=== PATIENT | female | born 1995 | race Caucasian/White ===

== ENCOUNTER → 2016-12-23 | Outpatient (CLI) | payer OTHER ==
[~2016-12-23] MED LIST: MOTR200T44 PO; TYLE167L PO
[2016-12-23 13:11] LABS: ALT/SGPT 15 U/L (12-78); AST/SGOT 12 U/L (15-37); BILIRUBIN,TOTAL 0.2 MG/DL (0.2-1.0); CREATININE FOR GFR 0.59 MG/DL (0.55-1.02); URIC ACID 4.1 MG/DL (2.6-6.0)
--- NOTE | 2016-12-23 16:39 | REP ---
Clinical: Anatomical evaluation. Comparison: None . Findings: Examination demonstrates a single live intrauterine in cephalic presentation. motion is identified by technologist. Placenta is noted anteriorly and grade zero without evidence for placenta previa or abruption. Amniotic fluid volume is normal. Cervix measures 3.6 cm in length and appears closed. No evidence for nuchal cord. Gestational age by current measurements 19 weeks 0 days with GURMEET 05/19/2017 . FHR equals 150 beats per minute. BPD 4.4 cm 19 weeks 1 day HC 16.0 cm 18 weeks 6 days AC 14.2 cm 19 weeks 4 days FL 3.0 cm 19 weeks 3 days HL 3.0 cm 19 weeks 6 days HC/AC ratio 1.12 Estimated weight 290 grams ( 59th percentile). Anatomical assessment demonstrates normal structures including cranium, choroid plexus, cavum, cerebellum/posterior fossa, lungs, stomach, cord insertion, kidneys/bladder, spine, and extremities. Impression: Single live intrauterine in cephalic presentation. Limited evaluation of the facial features, heart/ventricular outflow tracts, and three-vessel cord may warrant reevaluation and follow-up. Signed by Bladimir Pacheco MD 12/23/2016 12:03 P
== END ==
LOC: M SMT 10:21
PROVIDERS: ATTEND Obstetrics & Gynecology
DX: Z34.82 Encounter for supervision of other normal pregnancy, second trimester (principal); Z36 Encounter for antenatal screening of mother; Z3A.19 19 weeks gestation of pregnancy

== ENCOUNTER → 2017-02-13 | Outpatient (CLI) | payer OTHER ==
--- NOTE | 2017-02-14 04:43 | REP ---
Clinical: Anatomical evaluation. Comparison: 12/23/2016 . Findings: Examination demonstrates a single live intrauterine currently in breech presentation. motion is identified by technologist. Placenta is noted anteriorly and grade zero without evidence for placenta previa or abruption. Amniotic fluid volume is normal. Cervix measures 4.5 cm in length and appears closed. Nuchal cord cannot be excluded. 1.8 cm anterior intramural midline uterine hypodensity likely represent small fibroid. Presumed complex cystic changes to the left maternal ovary measuring 3.1 x 3.4 x 6.0 cm. Gestational age by LMP 26 weeks 3 days with GURMEET 05/19/2017 . Gestational age by current measurements 26 weeks 2 days with GURMEET 05/20/2017 . FHR equals 145 beats per minute. Estimated weight 923 grams ( 41st percentile). Anatomical assessment demonstrates normal structures including cranium, choroid plexus, cavum, cerebellum/posterior fossa, facial features, lungs, four-chamber heart/ventricular outflow tracts, diaphragm, stomach, cord insertion/three-vessel cord, kidneys/bladder, spine, and extremities. Impression: 1. Single live intrauterine currently in breech presentation demonstrating appropriate interval growth. 2. Anatomical assessment is complete and normal. 3. Suspected small maternal fibroid as well as possible complex enlarged left ovary may warrant follow-up evaluation. Signed by Bladimir Pacheco MD 02/14/2017 04:35 A
== END ==
LOC: M RAD 13:16
PROVIDERS: ATTEND Advanced Practice Midwife
DX: O32.1XX0 Maternal care for breech presentation, not applicable or unspecified (principal); Z36 Encounter for antenatal screening of mother; Z3A.26 26 weeks gestation of pregnancy

== ENCOUNTER → 2017-04-01 | Outpatient (CLI) | payer OTHER ==
[2017-04-01 15:44] LABS: BASO % 0.2 % (0.0-1.0); EOS # 0.1 K/mm3 (0.0-0.50); EOS % 1.4 % (0.0-3.0); LARGE UNSTAINED CELL # 0.1 K/mm3 (0.0-0.4); LARGE UNSTAINED CELL % 1.9 % (0.0-4.0); LYMPH % 28.6 % (24.0-44.0); MEAN CORPUSCULAR HEMOGLOBIN 28.6 pg (27.0-33.0); MEAN CORPUSCULAR HGB CONC 33.6 g/dl (32.0-36.5); MEAN CORPUSCULAR VOLUME 85.1 fl (80.0-96.0); MONO # 0.4 K/mm3 (0.0-0.8); MONO % 5.7 % (0.0-5.0); NEUTROPHILS # 4.1 K/mm3 (1.8-7.7); NEUTROPHILS % 62.3 % (36.0-66.0); PLATELET COUNT, AUTOMATED 198 k/mm3 (150-450); RED CELL DISTRIBUTION WIDTH 13.6 % (11.5-14.5); WHITE BLOOD COUNT 6.6 K/mm3 (4.0-10.0)
[2017-04-02 10:57] LABS: HBsAg Prenatal NEGATIVE (NEGATIVE)
== END ==
LOC: M LAB 14:06
PROVIDERS: ATTEND Advanced Practice Midwife
DX: Z34.83 Encounter for supervision of other normal pregnancy, third trimester (principal); Z36 Encounter for antenatal screening of mother; Z3A.00 Weeks of gestation of pregnancy not specified

== ENCOUNTER → 2017-04-22 | Outpatient (REF) | payer OTHER ==
[~2017-04-22] MED LIST changes: +ACET50TA PO; +IBUP-1114 PO; +PRENTAB9 PO
== END ==
LOC: M LAB REF 16:59
PROVIDERS: ATTEND Advanced Practice Midwife
DX: Z34.83 Encounter for supervision of other normal pregnancy, third trimester (principal); Z36 Encounter for antenatal screening of mother; Z3A.00 Weeks of gestation of pregnancy not specified

== ENCOUNTER 2017-05-07 15:55 | Inpatient (IN) | payer OTHER ==
[~2017-05-07] VITALS: Ht 172.7 cm; Wt 105.0 kg
[~2017-05-07 15:55] MED LIST changes: -ACET50TA PO; -IBUP-1114 PO; -PRENTAB9 PO
[2017-05-07 16:18] VITALS: BP 133/68
[2017-05-07] MEDS ORDERED: miSOPROStol 50 MCG 1/2 TAB (S0191) PO ONE (16:45)
--- NOTE | 2017-05-07 17:07 | HPE ---
DATE OF ADMISSION: 05/07/2017 CHIEF COMPLAINT: Induction of labor. HISTORY OF PRESENT ILLNESS: Trang Mancini is a 22-year-old G4, P2-0-1-2, at 38 weeks, 6 days gestation by last menstrual period of 08/08/2016, confirmed by ultrasound. Her estimated date of confinement is 05/15/2017. She presents from the office for induction secondary to gestational hypertension and proteinuria. She denies contractions. She denies rupture of membranes. She is feeling baby move. She denies bleeding and discharge. Her last intercourse was yesterday. LABORATORIES: She is A positive, GBS negative, rubella immune. HIV negative, gonorrhea and chlamydia negative, hepatitis B antigen negative, hepatitis C nonreactive, VDRL nonreactive. Diabetes screen was 106. Urine showed no growth. Her blood pressures in the office have been ranging from 102-152 over 69-94. Obstetrical ultrasound from 01/10/2016 showed a posterior placenta without previa or abruption. Anatomical assessment was normal and complete. PAST OBSTETRICAL HISTORY: 1. In 2013 she delivered a female at 42 weeks and 0 days gestation by spontaneous vaginal delivery, weighing 9 pounds 2 ounces. 2. In 2014 she had an . 3. In 2015 she delivered a female at 40 weeks and 5 days via normal spontaneous vaginal delivery, weighing 8 pounds 12 ounces. MEDICAL HISTORY: None. MEDICATIONS: None. PAST SURGICAL HISTORY: None. ALLERGIES: None. SOCIAL HISTORY: She is single. Smokes three cigarettes a day. Denies alcohol or drug use. PHYSICAL EXAMINATION: VITAL SIGNS: Temperature is 97.5, pulse is 82, respiratory rate is 18, blood pressure is 133/68. ABDOMEN: Gravid. Upon vaginal exam she was closed, 50% effaced, -3 station. monitor: heart rate is in the 130s with accelerations, no decelerations. Moderate variability. Category 1 tracing. ASSESSMENT: 1. Intrauterine at 38 weeks, 6 days gestation, presenting for induction secondary to gestational hypertension and proteinuria. 2. Reassuring status. PLAN: 1. Admit to labor and delivery. 2. Start 50mcg Cytotec. My preceptor for this patient encounter was Dr. Cheyenne Willson. The preceptor was physically present in the building during the encounter and was fully available as needed. All aspects of the patient interview, examination, medical decision making process, and medical care plan development were reviewed and approved by the preceptor. The preceptor is aware and concurs with the plan as stated in the body of this note and will attest to such by his/her co-signature. RIGOBERTO
[2017-05-07 17:22] LABS: MEAN CORPUSCULAR HEMOGLOBIN 27.3 pg (27.0-33.0); MEAN CORPUSCULAR HGB CONC 33.3 g/dl (32.0-36.5); RED CELL DISTRIBUTION WIDTH 13.8 % (11.5-14.5); WHITE BLOOD COUNT 6.4 K/mm3 (4.0-10.0)
[2017-05-07] MEDS: miSOPROStol 50 MCG 1/2 TAB (S0191) PO SCH ×2 (17:25→22:23)
[2017-05-07 17:51] LABS: ALT/SGPT 14 U/L (12-78); AST/SGOT 13 U/L (15-37); BILIRUBIN,TOTAL 0.2 MG/DL (0.2-1.0); CREATININE FOR GFR 0.65 MG/DL (0.55-1.02); GLOMERULAR FILTRATION RATE > 60.0 (>60); URIC ACID 5.1 MG/DL (2.6-6.0)
[2017-05-07 20:07] VITALS: BP 136/84
[2017-05-07 22:27] VITALS: BP 131/74
[2017-05-08] VITALS (27 sets, daily range): BP systolic 105–156; BP diastolic 55–94
[2017-05-08] MEDS: miSOPROStol 50 MCG 1/2 TAB (S0191) PO SCH ×2 (02:30→09:15)
[2017-05-08] MEDS ORDERED: BICITRA 30ML SOLN UDC PO SCH (06:00)
[2017-05-08] MEDS ORDERED: OXYTOCIN DRIP 30 UNITS in APPROPRIATE DILUENT 1 EA IV SCH (13:15)
[2017-05-08] MEDS ORDERED: LR 1,000 ML IV SCH (14:40)
[2017-05-08 16:21] LABS: MEAN CORPUSCULAR HEMOGLOBIN 27.6 pg (27.0-33.0); MEAN CORPUSCULAR HGB CONC 33.7 g/dl (32.0-36.5); WHITE BLOOD COUNT 6.9 K/mm3 (4.0-10.0)
[2017-05-08] MEDS ORDERED: FENTANYL 2MCG/ML ROPIVACAINE 0.2% IN 0.9% NACL 200ML IVBAG As Ordered ONE (16:30)
--- NOTE | 2017-05-08 16:33 | IPN ---
DATE: 05/08/2017 SUBJECTIVE: The patient is feeling more pressure with contractions and would like and epidural. OBJECTIVE: Blood pressure is 105/55, pulse is 74. No acute distress. ABDOMEN: Nontender, gravid. Sterile vaginal examination: /-2. heart rate: 140, moderate variability, accelerations, no decelerations. [place]: Shows irritability. ASSESSMENT AND PLAN: 22-year-old, 4, para 2 in labor. 1. Epidural. 2. Artificial rupture of membranes. 3. We will monitor progress. My preceptor for this patient encounter was Dr. Shay. The preceptor was physically present in the building during the encounter and was fully available. As needed, all aspects of the patient interview, examination, medical decision making process, and medical care plan development were reviewed and approved by the preceptor. The preceptor is aware and concurs with the plan as stated in the body of this note and will attest to such by his/her cosignature. RIGOBERTO
[2017-05-08] MEDS ORDERED: ePHEDrine SULFATE 25 MG/5 ML(5MG/ML) SYRINGE IV PRN (17:30)
[2017-05-08] MEDS ORDERED: EPIDURAL COMMENT XX SCH (17:30)
[2017-05-08] MEDS ORDERED: REFRIGERATOR IV KEYS XX PRN (17:30)
[2017-05-08] MEDS ORDERED: LACTATED RINGER'S 1000 ML IV PRN (17:30)
[2017-05-08] MEDS ORDERED: NALOXONE INJ 0.4 MG/1 ML VIAL (J2310) IV PRN (17:30)
[2017-05-08] MEDS ORDERED: ONDANSETRON 4MG/2ML VIAL (J2405) IV PRN ×2 (17:30→20:00)
[2017-05-08] MEDS ORDERED: FENTANYL/ROPIVACAINE/NACL BAG 200 ML EPIDURAL SCH (17:30)
[2017-05-08] MEDS ORDERED: EPIDURAL/PCA KEYS XX PRN (17:30)
[2017-05-08] MEDS ORDERED: diphenhydrAMINE INJ 50MG/ML VIAL (J1200) IV PRN (17:30)
--- NOTE | 2017-05-08 19:27 | IPN ---
DATE: 05/08/2017 SUBJECTIVE: The patient had just gotten an epidural, she is more comfortable now. OBJECTIVE: Blood pressure is 105/55, pulse is 74. The patient is in no acute distress. Abdomen: Nontender, gravid. SVE: 4/7/-2. FHR: 140, moderate variability. Accelerations, no decelerations. Artifical rupture of membranes was performed by Dr. Shay at 1725. Aminotic fluid was clear with moderate amount. ASSESSMENT AND PLAN: 22-year-old 4, para 2 in labor. 1. AROM performed at 1725. 2. Will monitor progress, expectant management. My preceptor for this patient encounter was Dr. Viktor Shay. The preceptor was physically present in the building during the encounter and was fully available. As needed, all aspects of the patient interview, examination, medical decision making process, and medical care plan development were reviewed and approved by the preceptor. The preceptor is aware and concurs with the plan as stated in the body of this note and will attest to such by his/her cosignature. RIGOBERTO
[2017-05-08] MEDS ORDERED: DOCUSATE SODIUM 100 MG CAP PO PRN (20:00)
[2017-05-08] MEDS ORDERED: METHYLERGONOVINE MALEATE 0.2 MG TAB PO PRN (20:00)
[2017-05-08] MEDS ORDERED: PROMETHAZINE 25 MG TAB PO PRN (20:00)
[2017-05-08] MEDS ORDERED: MOM 30ML SUSPENSION UDC PO PRN (20:00)
[2017-05-08] MEDS ORDERED: DIBUCAINE 1% OINTMENT 30GM TOP PRN (20:00)
[2017-05-08] MEDS ORDERED: OXYTOCIN DRIP 30 UNITS in APPROPRIATE DILUENT 1 EA IV ONE (20:00)
[2017-05-08] MEDS ORDERED: RHOGAM 300 MCG (1500 IU) INJ (J2790) IM SCH (20:00)
[2017-05-08] MEDS ORDERED: MEASLES,MUMPS,RUBELLA VACCINE INJ (MMR-II) (90707) SC SCH (20:00)
--- NOTE | 2017-05-08 20:17 | IPN ---
DATE: 05/08/2017 SUBJECTIVE: Patient states that she is feeling more pressure with her contractions. OBJECTIVE: Blood pressure is 143/76. No acute distress. ABDOMEN: Not tender, gravid. SVE: 5/90/-1. FHR: 140, moderate variability. Accelerations. No decelerations. ASSESSMENT AND PLAN: A 22-year-old G4, P1, in active labor. Anticipate spontaneous vaginal delivery. My preceptor for this patient encounter was Dr. Viktor Shay. The preceptor was physically present in the building during the encounter and was fully available as needed. All aspects of the patient interview, examination, medical decision making process, and medical care plan development were reviewed and approved by the preceptor. The preceptor is aware and concurs with the plan as stated in the body of this note and will attest to such by his/her co-signature. RIGOBERTO
[2017-05-09] MEDS: ACETAMINOPHEN 500 MG TAB PO PRN ×2 (05:07→19:47)
[2017-05-09 06:00] VITALS: BP 141/94
[2017-05-09] MEDS: PRENATAL VITAMINS CHEWABLE TABLET PO SCH (07:33)
[2017-05-09] MEDS: IBUPROFEN 800 MG TAB PO PRN ×2 (07:33→15:37)
[2017-05-09 18:00] VITALS: BP 151/85
[2017-05-10 06:04] VITALS: BP 140/81
[2017-05-10] MEDS: PRENATAL VITAMINS CHEWABLE TABLET PO SCH (09:19)
--- NOTE | 2017-05-10 09:37 | DN ---
DATE OF DELIVERY: 05/08/2017 PREDELIVERY DIAGNOSES: 39 weeks, gestational hypertension. POSTDELIVERY DIAGNOSIS: Delivered. PROCEDURE: Spontaneous vaginal delivery. BOLOGNA LACER: Viktor Shay MD ANESTHESIA: Epidural. ESTIMATED BLOOD LOSS: 300 mL. FINDINGS: 8-pound 13-ounce female infant, scores 8 and 9. DELIVERY SUMMARY: After a short second stage, the patient spontaneously delivered an 8-pound 13-ounce female infant, 4000 grams, scores 8 and 9, under epidural anesthesia. There was no nuchal cord. The shoulders delivered with ease. The infant cried spontaneously and was handed to the mother. The cord was doubly clamped and cut. The placenta delivered spontaneously and appeared to be intact. The patient received intravenous (IV) Pitocin immediately after delivery of the placenta. There were no vaginal lacerations present. Sponge counts were correct.
[2017-05-10] MEDS ORDERED: ACET50TA PO (12:01)
[2017-05-10] MEDS ORDERED: IBUP-1114 PO (12:01)
[2017-05-10] MEDS ORDERED: PRENTAB9 PO (12:01)
--- NOTE | 2017-05-11 21:48 | DSES ---
DATE OF ADMISSION: 05/07/2017 DATE OF DISCHARGE: 05/10/2017 Trang is a 22-year-old female, 4, para 2-0-1-2 who is admitted at 38-6/7 weeks gestation after having gestational hypertension for an induction with Cytotec. Then became fully dilated and delivered a normal spontaneous vaginal delivery. Was then transferred to maternity for care. she did well. Her blood pressures remained mildly elevated in 140s over 90s. On day of discharge her blood pressure was 140/81. Patient without any complaint. Patient was then discharged home to followup with a [facility] in approximately 1 week for blood pressure check and 6 weeks' visit. Discharge instruction given. She is to call if there is any severe bleeding, pain, temperature, headache, or blurred vision. RIGOBERTO
== END 2017-05-10 12:45 | disposition home or self-care (01) | DRG 560 ==
LOC: M LDI 15:55 → M OBS 05-08 21:39
PROVIDERS: ADMIT Advanced Practice Midwife; ATTEND Specialist
PROC: 3E0P7GC Introduction of Other Therapeutic Substance into Female Reproductive, Via Natural or Artificial Opening (ICD-10-PCS; 2017-05-07)
PROC: 10E0XZZ Delivery of Products of Conception, External Approach (ICD-10-PCS; principal; 2017-05-08)
PROC: 10907ZC Drainage of Amniotic Fluid, Therapeutic from Products of Conception, Via Natural or Artificial Opening (ICD-10-PCS; 2017-05-08)
DX: O14.94 Unspecified pre-eclampsia, complicating childbirth (principal); E66.9 Obesity, unspecified; F17.210 Nicotine dependence, cigarettes, uncomplicated; Z3A.38 38 weeks gestation of pregnancy; O99.334 Smoking (tobacco) complicating childbirth; O99.214 Obesity complicating childbirth; Z37.0 Single live birth; Z68.29 Body mass index [BMI] 29.0-29.9, adult

== ENCOUNTER → 2017-12-12 | Outpatient (CLI) | payer OTHER | LOC: M RAD 18:12 | DX: Z32.01 Encounter for pregnancy test, result positive (principal) | CPT/HCPCS: 76801 ==

== ENCOUNTER → 2019-05-17 | Outpatient (CLI) | payer OTHER ==
[~2019-05-17] MED LIST changes: +IBUP-1114 PO; +MAPA500T2 PO; +PRENTAB9 PO
[2019-05-17 10:19] LABS: BASO % 0.3 % (0.0-1.0); EOS # 0.1 10^3/uL (0.0-0.50); EOS % 1.6 % (0.0-3.0); HEMATOCRIT 38.2 % (36.0-47.0); LYMPH # 2.2 10^3/uL (1.5-6.5); LYMPH % 31.9 % (24.0-44.0); MEAN CORPUSCULAR HEMOGLOBIN 29.3 pg (27.0-33.0); MEAN CORPUSCULAR VOLUME 86.2 fl (80.0-96.0); MONO # 0.4 10^3/uL (0.0-0.8); MONO % 5.6 % (0.0-5.0); NEUTROPHILS # 4.1 10^3/uL (1.8-7.7); NEUTROPHILS % 60.3 % (36.0-66.0); PLATELET COUNT, AUTOMATED 199 10^3/uL (150-450); RED BLOOD COUNT 4.43 10^6/uL (4.00-5.40); WHITE BLOOD COUNT 6.8 10^3/uL (4.0-10.0)
[2019-05-17 10:44] LABS: ALT/SGPT 19 U/L (12-78); BILIRUBIN,TOTAL 0.3 MG/DL (0.2-1.0); CREATININE FOR GFR 0.64 MG/DL (0.55-1.30); GLOMERULAR FILTRATION RATE > 60.0 (>60); LDH LACTATE DEHYDROGENASE 134 U/L (84-246); URIC ACID 3.5 MG/DL (2.6-6.0)
[2019-05-17 11:10] LABS: RUBELLA IgG QUALITATIVE IMMUNE (IMMUNE)
[2019-05-17 11:39] LABS: HEPATITIS C VIRUS ABY INDEX 0.1 INDEX (<0.8)
[2019-05-17 11:40] LABS: CHLAMYDIA DNA AMPLIFICATION NEGATIVE (NEGATIVE)
[2019-05-17 20:33] LABS: TOTAL PROTEIN,RANDOM URINE 10.8 MG/DL (0.0-12.0)
[2019-05-18 06:44] LABS: CREATININE,RANDOM URINE 40.3 MG/DL
[2019-05-18 06:45] LABS: GC DNA AMPLIFICATION NEGATIVE (NEGATIVE)
[2019-05-18 06:46] LABS: HIV 1&2 SCREEN CENTAUR NEGATIVE (NEGATIVE)
== END ==
LOC: M LAB 09:20
PROVIDERS: ATTEND Advanced Practice Midwife
DX: Z34.81 Encounter for supervision of other normal pregnancy, first trimester (principal); Z3A.09 9 weeks gestation of pregnancy

== ENCOUNTER 2019-06-20 11:53 | Emergency (ER) | payer OTHER ==
[~2019-06-20] VITALS: Ht 172.7 cm; Wt 95.6 kg
[2019-06-20 12:34] VITALS: BP 119/73
[2019-06-20] MEDS ORDERED: CLIN150C14 PO (13:20)
== END 2019-06-20 13:41 | disposition home or self-care (01) ==
LOC: M ED 11:53
DX: K02.9 Dental caries, unspecified (principal); Z3A.18 18 weeks gestation of pregnancy; F17.200 Nicotine dependence, unspecified, uncomplicated

== ENCOUNTER → 2019-06-28 | Outpatient (CLI) | payer OTHER ==
[~2019-06-28] MED LIST changes: +CLIN150C14 PO
--- NOTE | 2019-06-29 04:12 | REP ---
Clinical: Anatomical evaluation. Comparison: None . Findings: Examination demonstrates a single live intrauterine in breech presentation. motion is identified by technologist. Placenta is noted posterior and grade zero without evidence for placenta previa or abruption. Amniotic fluid volume is normal. Cervix measures 4.2 cm in length and appears closed. No evidence for nuchal cord. Gestational age by LMP 19 weeks 1 day with GURMEET 11/21/2019 . Gestational age by current measurements 18 weeks 4 days with GURMEET 11/25/2019 . FHR equals 139 beats per minute. BPD 4.1 cm 18 weeks 3 days HC 15.4 cm 18 weeks 3 days AC 13.4 cm 18 weeks 6 days FL 2.9 cm 19 weeks 0 days HL 2.8 cm 19 weeks 1 day HC/AC ratio 1.15 Estimated weight 261 grams ( 38th percentile). Anatomical assessment demonstrates normal structures including cranium, choroid plexus, cavum, cerebellum/posterior fossa, facial features, lungs, diaphragm, stomach, cord insertion/three-vessel cord, kidneys/bladder, spine, and extremities. Impression: Single live intrauterine in breech presentation demonstrating appropriate interval growth. Limited evaluation of the heart and cardiac ventricular outflow tracts noted. Remainder of the anatomical assessment is complete and normal. Electronically Signed by Bladimir Pacheco MD 06/29/2019 04:04 A
== END ==
LOC: M RAD 09:48
PROVIDERS: ATTEND Advanced Practice Midwife
DX: Z34.82 Encounter for supervision of other normal pregnancy, second trimester (principal); Z3A.18 18 weeks gestation of pregnancy

== ENCOUNTER → 2019-07-16 | Outpatient (CLI) | payer OTHER ==
--- NOTE | 2019-07-16 11:10 | REP ---
OB ULTRASOUND: Real-time sonographic evaluation of the gravid uterus is performed. There is a single living intrauterine gestation. Estimated gestational age 21 weeks 5 days, EDC 11/21/2019. Today's measurements indicate appropriate growth. BPD 48 mm = 20 weeks 3 days, 17th percentile HC 182 mm = 20 weeks 4 days, 17th percentile AC 159 mm = 21 weeks 0 days, 36th percentile Femur length 35 mm = 21 weeks 1 day, 34th percentile HC/AC ratio 1.14 within normal range. Estimated weight 392 grams, 24th percentile. Cervix is closed and measures 4.8 cm in length. heart rate 144 beats per minute. SEEN/GROSSLY UNREMARKABLE Lateral ventricles Yes Posterior fossa Yes Upper lip No Four-chamber heart No LVOT Yes RVOT No Stomach Yes Cord insertion Yes Three vessel cord Yes Kidneys Yes Bladder Yes Spine Yes position: Footling breech. Placenta: Posterior and grade 1 with no previa or abruption. Amniotic fluid: Within normal limits. Electronically Signed by Shravan Solorio MD 07/20/2019 08:46 A
== END ==
LOC: M RAD 08:54
PROVIDERS: ATTEND Obstetrics & Gynecology
DX: Z34.82 Encounter for supervision of other normal pregnancy, second trimester (principal)

== ENCOUNTER → 2019-08-12 | Outpatient (CLI) | payer OTHER ==
--- NOTE | 2019-08-12 20:29 | REP ---
Clinical: Anatomical evaluation. Comparison: 07/16/2019 . Findings: Examination demonstrates a single live intrauterine in the cephalic presentation. motion is identified by technologist. Placenta is noted the posterior and grade zero without evidence for placenta previa or abruption. Amniotic fluid volume is normal. Cervix measures 3.6 cm in length and appears closed. Nuchal cord cannot be excluded. Gestational age by LMP 25 weeks 4 days with GURMEET 11/21/2019 . Gestational age by current measurements 24 weeks 5 days with GURMEET 11/27/2019 . FHR equals 140 beats per minute. Estimated weight 756 grams ( 27 percentile). Anatomical assessment demonstrates normal structures including cranium, choroid plexus, cavum, facial features, lungs, four-chamber heart/ventricular outflow tracts, diaphragm, stomach, three-vessel cord, kidneys/bladder, spine, and lower extremities. Impression: 1. Single live intrauterine in cephalic presentation demonstrating appropriate interval growth. 2. Nuchal cord cannot be excluded. 3. No gross anatomical abnormalities appreciated. Electronically Signed by Bladimir Pacheco MD 08/12/2019 08:20 P
== END ==
LOC: M RAD 10:02
PROVIDERS: ATTEND Advanced Practice Midwife
DX: Z36.9 Encounter for antenatal screening, unspecified (principal); Z3A.24 24 weeks gestation of pregnancy

== ENCOUNTER → 2019-10-01 | Outpatient (CLI) | payer OTHER ==
[2019-10-01 11:19] LABS: HEMATOCRIT 32.4 % (36.0-47.0); HEMOGLOBIN 10.7 g/dl (12.0-15.5); MEAN CORPUSCULAR HEMOGLOBIN 28.5 pg (27.0-33.0); MEAN CORPUSCULAR VOLUME 86.4 fl (80.0-96.0); PLATELET COUNT, AUTOMATED 224 10^3/uL (150-450); RED BLOOD COUNT 3.75 10^6/uL (4.00-5.40); WHITE BLOOD COUNT 9.2 10^3/uL (4.0-10.0)
== END ==
LOC: M LAB 09:24
PROVIDERS: ATTEND Obstetrics & Gynecology
DX: Z34.90 Encounter for supervision of normal pregnancy, unspecified, unspecified trimester (principal); Z3A.00 Weeks of gestation of pregnancy not specified

== ENCOUNTER → 2019-10-04 | Outpatient (CLI) | payer OTHER ==
[2019-10-04 13:10] LABS: HEMATOCRIT 34.9 % (36.0-47.0); HEMOGLOBIN 11.2 g/dl (12.0-15.5); MEAN CORPUSCULAR HEMOGLOBIN 28.5 pg (27.0-33.0); MEAN CORPUSCULAR HGB CONC 32.1 g/dl (32.0-36.5); MEAN CORPUSCULAR VOLUME 88.8 fl (80.0-96.0); PLATELET COUNT, AUTOMATED 225 10^3/uL (150-450); RED BLOOD COUNT 3.93 10^6/uL (4.00-5.40); WHITE BLOOD COUNT 9.4 10^3/uL (4.0-10.0)
[2019-10-04 14:07] LABS: ALT/SGPT 11 U/L (12-78); BILIRUBIN,TOTAL 0.1 MG/DL (0.2-1.0); CREATININE FOR GFR 0.58 MG/DL (0.55-1.30); GLOMERULAR FILTRATION RATE > 60.0 (>60); LDH LACTATE DEHYDROGENASE 121 U/L (84-246); URIC ACID 3.1 MG/DL (2.6-6.0)
[2019-10-04 14:32] LABS: CREATININE,RANDOM URINE 56.4 MG/DL; TOTAL PROTEIN,RANDOM URINE 17.8 MG/DL (0.0-12.0)
== END ==
LOC: M PLALAB 10:11
PROVIDERS: ATTEND Obstetrics & Gynecology
DX: O16.3 Unspecified maternal hypertension, third trimester (principal); Z3A.00 Weeks of gestation of pregnancy not specified

== ENCOUNTER → 2019-10-07 | Outpatient (CLI) | payer OTHER | LOC: M LAB 06:52 | PROVIDERS: ATTEND Obstetrics & Gynecology | DX: O99.810 Abnormal glucose complicating pregnancy (principal) ==

== ENCOUNTER 2019-10-11 01:11 | Emergency (ER) | payer OTHER ==
[2019-10-11] MEDS ORDERED: AUGM500T34 PO (04:08)
== END 2019-10-11 01:48 | disposition admitted as inpatient to this hospital (09) ==
LOC: M ED 01:11
DX: K92.9 Disease of digestive system, unspecified (principal)

== ENCOUNTER 2019-10-11 01:32 | Outpatient (CLI) | payer OTHER ==
[~2019-10-11] VITALS: Ht 172.7 cm; Wt 104.4 kg
[2019-10-11 01:49] VITALS: BP 121/68
[2019-10-11] MEDS ORDERED: AUGM500T34 PO (04:08)
== END 2019-10-11 02:48 | disposition home or self-care (01) ==
LOC: M LDO 01:32
PROVIDERS: ATTEND Obstetrics & Gynecology
DX: O26.93 Pregnancy related conditions, unspecified, third trimester (principal); R10.9 Unspecified abdominal pain; Z3A.33 33 weeks gestation of pregnancy

== ENCOUNTER 2019-10-11 02:56 | Emergency (ER) | payer OTHER ==
[~2019-10-11] VITALS: Ht 172.7 cm; Wt 101.8 kg
[2019-10-11] MEDS ORDERED: AUGMENTIN 875 MG TAB PO ONE (04:00)
[2019-10-11] MEDS ORDERED: AUGM500T34 PO (04:08)
[2019-10-11 04:19] LABS: INFLUENZA A AMPLIFICATION NEGATIVE (NEGATIVE); INFLUENZA B AMPLIFICATION NEGATIVE (NEGATIVE)
[2019-10-11 04:29] VITALS: BP 135/72
== END 2019-10-11 04:16 | disposition home or self-care (01) ==
LOC: M ED 02:56
DX: O99.89 Other specified diseases and conditions complicating pregnancy, childbirth and the puerperium (principal); Z3A.34 34 weeks gestation of pregnancy; H66.90 Otitis media, unspecified, unspecified ear; J06.9 Acute upper respiratory infection, unspecified

== ENCOUNTER → 2019-10-19 | Outpatient (REF) | payer OTHER ==
[~2019-10-19] MED LIST changes: +AUGM500T34 PO
== END ==
LOC: M SFHCWAGY 16:51
PROVIDERS: ATTEND Specialist
DX: Z34.83 Encounter for supervision of other normal pregnancy, third trimester (principal)

== ENCOUNTER 2019-11-02 06:58 | Inpatient (IN) | payer OTHER ==
[2019-11-02] VITALS (15 sets, daily range): BP systolic 118–147; BP diastolic 60–83
[~2019-11-02] VITALS: Ht 172.7 cm; Wt 106.0 kg
[2019-11-02] MEDS ORDERED: LR 1,000 ML IV SCH (07:32)
[2019-11-02] MEDS ORDERED: LACTATED RINGER'S 1000 ML IV STA (07:32)
[2019-11-02 08:57] LABS: HEMATOCRIT 30.8 % (36.0-47.0); HEMOGLOBIN 9.8 g/dl (12.0-15.5); MEAN CORPUSCULAR HEMOGLOBIN 27.8 pg (27.0-33.0); MEAN CORPUSCULAR HGB CONC 31.8 g/dl (32.0-36.5); MEAN CORPUSCULAR VOLUME 87.3 fl (80.0-96.0); PLATELET COUNT, AUTOMATED 154 10^3/uL (150-450); RED BLOOD COUNT 3.53 10^6/uL (4.00-5.40); WHITE BLOOD COUNT 9.2 10^3/uL (4.0-10.0)
[2019-11-02 09:21] LABS: ALT/SGPT 12 U/L (12-78); BILIRUBIN,TOTAL 0.2 MG/DL (0.2-1.0); GLOMERULAR FILTRATION RATE > 60.0 (>60); LDH LACTATE DEHYDROGENASE 114 U/L (84-246); URIC ACID 3.4 MG/DL (2.6-6.0)
[2019-11-02] MEDS: miSOPROStol 50 MCG 1/2 TAB (S0191) SL SCH ×3 (09:53→18:31)
[2019-11-02] MEDS ORDERED: OXYTOCIN 30 UNITS IN 0.9% NaCl 500ML IV BAG (J2590) As Ordered ONE (22:23)
[2019-11-02] MEDS ORDERED: OXYTOCIN DRIP 30 UNITS in IV 1 EA IV SCH (23:00)
[2019-11-03] VITALS (31 sets, daily range): BP systolic 113–169; BP diastolic 58–134
[2019-11-03] MEDS ORDERED: FENTANYL 2MCG/ML ROPIVACAINE 0.2% IN 0.9% NACL 100ML IVBAG As Ordered ONE (01:01)
[2019-11-03] MEDS ORDERED: EPIDURAL COMMENT XX SCH (01:10)
[2019-11-03] MEDS ORDERED: ONDANSETRON 4MG/2ML VIAL (J2405) IV PRN ×2 (01:10→05:15)
[2019-11-03] MEDS ORDERED: EPIDURAL/PCA KEYS XX PRN (01:10)
[2019-11-03] MEDS ORDERED: FENTANYL/ROPIVACAINE/NACL BAG 100 ML EPIDURAL SCH (01:10)
[2019-11-03] MEDS ORDERED: LACTATED RINGER'S 1000 ML IV PRN (01:10)
[2019-11-03] MEDS ORDERED: REFRIGERATOR IV KEYS XX PRN (01:10)
[2019-11-03] MEDS ORDERED: ePHEDrine SULFATE 25 MG/5 ML(5MG/ML) SYRINGE IV PRN (01:10)
[2019-11-03] MEDS ORDERED: NALOXONE INJ 0.4 MG/1 ML VIAL (J2310) IV PRN (01:10)
[2019-11-03] MEDS ORDERED: diphenhydrAMINE INJ 50MG/ML VIAL (J1200) IV PRN (01:10)
[2019-11-03] MEDS ORDERED: IBUPROFEN 600 MG TAB PO PRN (05:15)
[2019-11-03] MEDS ORDERED: IBUPROFEN 800 MG TAB PO PRN (05:15)
[2019-11-03] MEDS ORDERED: ACETAMINOPHEN TAB 650MG DOSE (2X325MG) PO PRN (05:15)
[2019-11-03] MEDS ORDERED: DIBUCAINE 1% OINTMENT 30GM TOP PRN (05:15)
[2019-11-03] MEDS ORDERED: PROMETHAZINE 25 MG TAB PO PRN (05:15)
[2019-11-03] MEDS ORDERED: ACETAMINOPHEN 500 MG TAB PO PRN (05:15)
[2019-11-03] MEDS ORDERED: DOCUSATE SODIUM 100 MG CAP PO PRN (05:15)
[2019-11-03] MEDS ORDERED: LR 1,000 ML IV SCH (06:00)
[2019-11-03] MEDS ORDERED: MEASLES,MUMPS,RUBELLA VACCINE INJ (MMR-II) (90707) SC SCH (06:00)
[2019-11-03] MEDS ORDERED: RHOGAM 300 MCG (1500 IU) INJ (J2790) IM SCH (06:00)
[2019-11-03] MEDS ORDERED: OXYTOCIN DRIP 30 UNITS in IV 1 EA IV SCH (06:00)
[2019-11-03] MEDS: PRENATAL VITAMINS CHEWABLE TABLET PO SCH (10:30)
[2019-11-04 05:00] VITALS: BP 118/62
[2019-11-04 07:30] VITALS: BP 120/63
[2019-11-04] MEDS: PRENATAL VITAMINS CHEWABLE TABLET PO SCH (10:02)
== END 2019-11-04 13:48 | disposition home or self-care (01) | DRG 560 ==
LOC: M LDI 06:58 → M OBS 11-03 07:20
PROVIDERS: ADMIT Obstetrics & Gynecology; ATTEND Obstetrics & Gynecology
PROC: 3E0P7GC Introduction of Other Therapeutic Substance into Female Reproductive, Via Natural or Artificial Opening (ICD-10-PCS; 2019-11-02)
PROC: 10E0XZZ Delivery of Products of Conception, External Approach (ICD-10-PCS; principal; 2019-11-03)
PROC: 10907ZC Drainage of Amniotic Fluid, Therapeutic from Products of Conception, Via Natural or Artificial Opening (ICD-10-PCS; 2019-11-03)
DX: O14.04 Mild to moderate pre-eclampsia, complicating childbirth (principal); O24.410 Gestational diabetes mellitus in pregnancy, diet controlled; Z3A.37 37 weeks gestation of pregnancy; O99.334 Smoking (tobacco) complicating childbirth; F17.210 Nicotine dependence, cigarettes, uncomplicated; Z37.0 Single live birth

== ENCOUNTER 2020-07-04 19:49 | Emergency (ER) | payer OTHER ==
[~2020-07-04] VITALS: Ht 172.7 cm; Wt 97.6 kg
[2020-07-04 20:51] LABS: BASO % 0.4 % (0.0-1.0); EOS # 0.3 10^3/uL (0.0-0.5); EOS % 2.9 % (0.0-3.0); HEMATOCRIT 41.5 % (36.0-47.0); HEMOGLOBIN 13.7 g/dl (12.0-15.5); LYMPH # 3.1 10^3/uL (1.5-5.0); MEAN CORPUSCULAR HEMOGLOBIN 27.5 pg (27.0-33.0); MEAN CORPUSCULAR VOLUME 83.2 fl (80.0-96.0); MONO # 0.6 10^3/uL (0.0-0.8); MONO % 6.6 % (0.0-5.0); NEUTROPHILS # 4.9 10^3/uL (1.5-8.5); NEUTROPHILS % 54.9 % (36.0-66.0); PLATELET COUNT, AUTOMATED 238 10^3/uL (150-450); RED BLOOD COUNT 4.99 10^6/uL (4.00-5.40)
[2020-07-04 21:09] LABS: HCG, SERUM QUALITATIVE NEGATIVE (NEGATIVE)
[2020-07-04 21:13] LABS: ALBUMIN 3.8 GM/DL (3.2-5.2); ALT/SGPT 23 U/L (12-78); BILIRUBIN,DIRECT 0.1 MG/DL (0.0-0.2); BILIRUBIN,TOTAL 0.4 MG/DL (0.2-1.0); BLOOD UREA NITROGEN 10 MG/DL (7-18); CALCIUM LEVEL 9.3 MG/DL (8.5-10.1); CARBON DIOXIDE LEVEL 27 MEQ/L (21-32); CHLORIDE LEVEL 107 MEQ/L (98-107); GLOMERULAR FILTRATION RATE > 60.0 (>60); GLUCOSE, FASTING 100 MG/DL (70-100); LIPASE 74 U/L (73-393); POTASSIUM SERUM 3.6 MEQ/L (3.5-5.1); SODIUM LEVEL 137 MEQ/L (136-145); TOTAL PROTEIN 8.1 GM/DL (6.4-8.2)
--- NOTE | 2020-07-04 22:24 | REPVR ---
PROCEDURE INFORMATION: Exam: XR Chest, 2 Views Exam date and time: 07/04/2020 10:12 PM Age: 25 years old Clinical indication: Other: Chest pain; Additional info: Chest pain/sob TECHNIQUE: Imaging protocol: XR of the chest Views: 2 views. COMPARISON: No relevant prior studies available. FINDINGS: Lungs: Unremarkable. No consolidation. Pleural space: Unremarkable. No pleural effusion. No pneumothorax. Heart/Mediastinum: Unremarkable. No cardiomegaly. Bones/joints: Unremarkable. IMPRESSION: No acute findings. Electronically signed by: Jamal Teixeira On 07/04/2020 22:24:28 PM
[2020-07-04] MEDS ORDERED: ANUS25SU PR (22:26)
[2020-07-04] MEDS ORDERED: VENTAER INH (22:35)
[2020-07-04 22:36] VITALS: BP 132/87
== END 2020-07-04 22:37 | disposition home or self-care (01) ==
LOC: M ED 19:49
DX: M94.0 Chondrocostal junction syndrome [Tietze] (principal); K92.1 Melena; J98.01 Acute bronchospasm; F17.200 Nicotine dependence, unspecified, uncomplicated

== ENCOUNTER 2020-07-09 04:29 | Emergency (ER) | payer OTHER ==
[~2020-07-09] VITALS: Ht 172.7 cm; Wt 95.5 kg
[~2020-07-09 04:29] MED LIST changes: +ANUS25SU PR; +VENTAER INH
[2020-07-09 04:31] VITALS: BP 140/91
[2020-07-09] MEDS ORDERED: CLEO300C2 PO (05:24)
[2020-07-09] MEDS ORDERED: CLINDAMYCIN 150MG CAPSULE PO ONE (05:30)
== END 2020-07-09 05:40 | disposition home or self-care (01) ==
LOC: M ED 04:29
DX: L03.211 Cellulitis of face (principal); L03.114 Cellulitis of left upper limb; F17.210 Nicotine dependence, cigarettes, uncomplicated

== ENCOUNTER → 2022-02-28 | Outpatient (CLI) | payer OTHER ==
[~2022-02-28] MED LIST changes: +CLEO300C2 PO; -CLIN150C14 PO; +CLIN150C17 PO
== END ==
LOC: M RAD 09:29
PROVIDERS: ATTEND Pediatrics
DX: K76.0 Fatty (change of) liver, not elsewhere classified (principal)

== ENCOUNTER → 2022-04-10 | Outpatient (CLI) | payer OTHER | LOC: M RAD 11:29 | PROVIDERS: ATTEND Pediatrics | DX: G43.109 Migraine with aura, not intractable, without status migrainosus (principal) ==

== ENCOUNTER → 2022-05-02 | Outpatient (CLI) | payer OTHER | LOC: M PLAIMG 09:27 | PROVIDERS: ATTEND Otolaryngology | DX: J32.4 Chronic pansinusitis (principal) ==

== ENCOUNTER → 2022-05-07 | Outpatient (CLI) | payer OTHER | LOC: M WHC 13:37 | PROVIDERS: ATTEND Pediatrics | DX: N64.52 Nipple discharge (principal) ==

== ENCOUNTER 2023-08-30 05:32 | Emergency (ER) | payer OTHER, SELFPAY ==
[2023-08-30 05:33] VITALS: BP 148/103; TEMP 98.7; O2SAT 96
[2023-08-30] MEDS ORDERED: LIDOCAINE W/EPINEPHRINE 1% 20ML VIAL SC ONE (07:00)
[2023-08-30 07:38] LABS: HEMATOCRIT 39.3 % (36.0-47.0); MEAN CORPUSCULAR HEMOGLOBIN 28.2 pg (27.0-33.0); MEAN CORPUSCULAR HGB CONC 33.1 g/dl (32.0-36.5); MEAN CORPUSCULAR VOLUME 85.2 fl (80.0-96.0); PLATELET COUNT, AUTOMATED 280 10^3/uL (150-450); RED BLOOD COUNT 4.61 10^6/uL (4.00-5.40); WHITE BLOOD COUNT 11.4 10^3/uL (4.0-10.0)
[2023-08-30] MEDS ORDERED: BACITRACIN OINTMENT 30GM TUBE TOP STA (08:30)
== END 2023-08-30 08:50 | disposition home or self-care (01) ==
LOC: M ED 05:32
DX: S01.411A Laceration without foreign body of right cheek and temporomandibular area, initial encounter (principal); X99.1XXA Assault by knife, initial encounter; Y92.9 Unspecified place or not applicable; Y07.9 Unspecified perpetrator of maltreatment and neglect; F17.290 Nicotine dependence, other tobacco product, uncomplicated

== ENCOUNTER 2024-07-10 09:52 | Emergency (ER) | payer OTHER, SELFPAY ==
[~2024-07-10] VITALS: Ht 172.7 cm; Wt 96.6 kg
[2024-07-10] MEDS: ONDANSETRON 4MG ORAL DISINTEGRATING TAB PO ONE (12:55)
[2024-07-10] MEDS: ACETAMINOPHEN 500 MG TAB PO ONE (12:55)
[2024-07-10 13:56] VITALS: BP 139/75; TEMP 97.1; O2SAT 98
== END 2024-07-10 14:05 | disposition home or self-care (01) ==
LOC: M ED 09:52
DX: S06.0X9A Concussion with loss of consciousness of unspecified duration, initial encounter (principal); S50.01XA Contusion of right elbow, initial encounter; Y92.410 Unspecified street and highway as the place of occurrence of the external cause; Y93.9 Activity, unspecified; Y99.9 Unspecified external cause status; Y04.2XXA Assault by strike against or bumped into by another person, initial encounter; F17.210 Nicotine dependence, cigarettes, uncomplicated; F19.10 Other psychoactive substance abuse, uncomplicated; F10.10 Alcohol abuse, uncomplicated

== ENCOUNTER → 2024-12-21 | Outpatient (CLI) | payer OTHER | LOC: M WHC 07:02 | PROVIDERS: ATTEND Obstetrics & Gynecology | DX: Z36.89 Encounter for other specified antenatal screening (principal) ==

== ENCOUNTER → 2024-12-28 | Outpatient (CLI) | payer OTHER ==
[2024-12-28 09:48] LABS: TOTAL PROTEIN,RANDOM URINE 32.3 MG/DL (0.0-14.0)
[2024-12-28 09:49] LABS: HEMOGLOBIN 11.9 g/dl (12.0-15.5); MEAN CORPUSCULAR HEMOGLOBIN 26.9 pg (27.0-33.0); MEAN CORPUSCULAR HGB CONC 32.2 g/dl (32.0-36.5); MEAN CORPUSCULAR VOLUME 83.7 fl (80.0-96.0); PLATELET COUNT, AUTOMATED 267 10^3/uL (150-450); RED BLOOD COUNT 4.42 10^6/uL (4.00-5.40); WHITE BLOOD COUNT 9.6 10^3/uL (4.0-10.0)
[2024-12-28 09:53] LABS: CREATININE,RANDOM URINE 189.7 MG/DL
[2024-12-28 10:55] LABS: HEMOGLOBIN A1c 5.2 % (4.0-6.0)
[2024-12-28 10:59] LABS: HEPATITIS C VIRUS ABY INDEX 0.02 INDEX (<0.8)
[2024-12-28 11:08] LABS: Trichomonas vaginalis (AMP) NOT DETECTED (NEGATIVE)
[2024-12-28 11:28] LABS: HIV 1&2 SCREEN NEGATIVE (NEGATIVE)
[2024-12-28 11:31] LABS: GC DNA AMPLIFICATION NEGATIVE (NEGATIVE)
== END ==
LOC: M LAB 08:20
PROVIDERS: ATTEND Obstetrics & Gynecology
DX: Z34.92 Encounter for supervision of normal pregnancy, unspecified, second trimester (principal)

== ENCOUNTER → 2025-01-07 | Outpatient (CLI) | payer OTHER | LOC: M WHC 08:51 | PROVIDERS: ATTEND Obstetrics & Gynecology | DX: Z36.2 Encounter for other antenatal screening follow-up (principal); Z3A.30 30 weeks gestation of pregnancy ==

== ENCOUNTER → 2025-04-13 | Outpatient (CLI) | payer OTHER ==
[~2025-04-13] MED LIST changes: +COLA100C5 PO; +IBUP80TA PO; +METF-839 PO; +PERCOCET PO; +TUMS500C PO
== END ==
LOC: M EKG 13:23
PROVIDERS: ATTEND Obstetrics & Gynecology
DX: O24.119 Pre-existing type 2 diabetes mellitus, in pregnancy, unspecified trimester (principal)

== ENCOUNTER → 2025-04-13 | Outpatient (CLI) | payer OTHER ==
[~2025-04-13] MED LIST changes: -COLA100C5 PO; -IBUP80TA PO; -PERCOCET PO; -TUMS500C PO
[2025-04-13 14:13] LABS: PLATELET COUNT, AUTOMATED 267 10^3/uL (150-450)
[2025-04-13 14:33] LABS: TOTAL PROTEIN,RANDOM URINE 55.9 MG/DL (0.0-14.0)
[2025-04-13 14:37] LABS: LDH LACTATE DEHYDROGENASE 119 U/L (120-246)
[2025-04-13 14:38] LABS: ALT/SGPT 9 U/L (7.0-40); AST/SGOT 13 U/L (<34); CREATININE FOR GFR 0.59 MG/DL (0.55-1.30); GLOMERULAR FILTRATION RATE > 90.0 (>60)
[2025-04-13 15:10] LABS: HIV 1&2 SCREEN NEGATIVE (NEGATIVE)
[2025-04-13 15:18] LABS: HEPATITIS C VIRUS ABY INDEX 0.08 INDEX (<0.8)
[2025-04-13 15:28] LABS: Trichomonas vaginalis (AMP) NOT DETECTED (NEGATIVE)
[2025-04-13 15:51] LABS: GC DNA AMPLIFICATION NEGATIVE (NEGATIVE)
== END ==
LOC: M LAB 13:20
PROVIDERS: ATTEND Obstetrics & Gynecology
DX: Z34.82 Encounter for supervision of other normal pregnancy, second trimester (principal)

== ENCOUNTER 2025-04-14 15:36 | Outpatient (CLI) | payer OTHER ==
[~2025-04-14] VITALS: Ht 174 cm; Wt 101.9 kg
[~2025-04-14 15:36] MED LIST changes: -METF-839 PO
[2025-04-14 15:53] VITALS: BP 139/84
[2025-04-14] MEDS ORDERED: METF-839 PO (15:56)
[2025-04-14 16:53] VITALS: BP 122/70
[2025-04-14 18:15] VITALS: BP 125/77
== END 2025-04-14 18:56 | disposition home or self-care (01) ==
LOC: M LDO 15:36
PROVIDERS: ATTEND Obstetrics & Gynecology
DX: O28.8 Other abnormal findings on antenatal screening of mother (principal); O24.113 Pre-existing type 2 diabetes mellitus, in pregnancy, third trimester; Z86.32 Personal history of gestational diabetes; Z3A.34 34 weeks gestation of pregnancy; Z87.59 Personal history of other complications of pregnancy, childbirth and the puerperium
CPT/HCPCS: 59025; 76815; 76819; 76820; G0463

== ENCOUNTER → 2025-04-20 | Outpatient (REF) | payer OTHER ==
[~2025-04-20] MED LIST changes: +METF-839 PO
== END ==
LOC: M SFHCWAGY 13:05
PROVIDERS: ATTEND Obstetrics & Gynecology
DX: Z34.03 Encounter for supervision of normal first pregnancy, third trimester (principal); Z3A.35 35 weeks gestation of pregnancy

== ENCOUNTER → 2025-04-26 | Outpatient (CLI) | payer OTHER | LOC: M WHC 11:38 | PROVIDERS: ATTEND Obstetrics & Gynecology | DX: O24.119 Pre-existing type 2 diabetes mellitus, in pregnancy, unspecified trimester (principal) ==

== ENCOUNTER 2025-05-02 07:28 | Outpatient (CLI) | payer OTHER ==
[~2025-05-02] VITALS: Ht 174 cm; Wt 101.7 kg
[2025-05-02] VITALS (8 sets, daily range): BP systolic 134–142; BP diastolic 84–100
[2025-05-02] MEDS ORDERED: TUMS500C PO (07:50)
[2025-05-02] MEDS ORDERED: HOME MED LIST COMPLETE! XX SCH (09:20)
[2025-05-02 10:41] LABS: PLATELET COUNT, AUTOMATED 280 10^3/uL (150-450)
[2025-05-02 10:50] LABS: LDH LACTATE DEHYDROGENASE 113 U/L (120-246)
[2025-05-02 10:51] LABS: ALT/SGPT 9 U/L (7.0-40); AST/SGOT 12 U/L (<34); CREATININE FOR GFR 0.66 MG/DL (0.55-1.30); GLOMERULAR FILTRATION RATE > 90.0 (>60)
[2025-05-02 11:01] LABS: TOTAL PROTEIN,RANDOM URINE 29.1 MG/DL (0.0-14.0)
== END 2025-05-02 13:40 | disposition home or self-care (01) ==
LOC: M LDO 07:28
PROVIDERS: ATTEND Advanced Practice Midwife
DX: O32.1XX0 Maternal care for breech presentation, not applicable or unspecified (principal); O24.415 Gestational diabetes mellitus in pregnancy, controlled by oral hypoglycemic drugs; O99.333 Smoking (tobacco) complicating pregnancy, third trimester; F17.210 Nicotine dependence, cigarettes, uncomplicated; Z3A.37 37 weeks gestation of pregnancy
CPT/HCPCS: 59025; 76815; 82247; 82570; 83615; 84156; 84450; 84460; 84550; 85027; G0463

== ENCOUNTER 2025-05-10 05:36 | Inpatient (IN) | payer OTHER ==
[~2025-05-10] VITALS: Ht 172.7 cm; Wt 101.7 kg
[2025-05-10] VITALS (9 sets, daily range): BP systolic 132–151; BP diastolic 79–86; TEMP 97.4; O2SAT 98–100
[~2025-05-10 05:36] MED LIST changes: +TUMS500C PO
[2025-05-10] MEDS ORDERED: ceFAZolin SODIUM 2 GM in DEXTROSE 5% (D5W) ADV/MINI-BAG 50 ML IV ONE (05:45)
[2025-05-10 06:45] LABS: PLATELET COUNT, AUTOMATED 307 10^3/uL (150-450)
[2025-05-10] MEDS: LACTATED RINGER'S 1000 ML IV STA (07:01)
[2025-05-10] MEDS: LR 1,000 ML IV SCH ×2 (07:12→10:40)
[2025-05-10] MEDS ORDERED: MORPHINE PRES-FREE INJ 10 MG/10 ML VIAL As Ordered ONE (07:19)
[2025-05-10] MEDS ORDERED: GLYCOPYRROLATE INJ 0.2 MG/ML 2 ML VIAL As Ordered ONE (07:23)
[2025-05-10] MEDS ORDERED: KETOROLAC 30 MG/ML 1 ML VIAL As Ordered ONE (07:24)
[2025-05-10] MEDS ORDERED: ONDANSETRON 4MG 2ML VIAL As Ordered ONE (07:24)
[2025-05-10 07:27] LABS: HIV 1&2 SCREEN NEGATIVE (NEGATIVE)
[2025-05-10] MEDS ORDERED: SUCCINYLCHOLINE 100MG/5ML SYRINGE As Ordered ONE (07:27)
[2025-05-10 07:34] LABS: HEPATITIS C VIRUS ABY INDEX < 0.02 INDEX (<0.8)
[2025-05-10] MEDS: BICITRA 30 ML SOLN UDC PO ONE (07:58)
[2025-05-10] MEDS: ceFAZolin SODIUM 3 GM in DEXTROSE 5% (D5W) MINI-BAG PLU 100 ML IV ONE (07:58)
[2025-05-10] MEDS ORDERED: OXYTOCIN 30UNITS IN 0.9% NaCl 500ML IV BAG As Ordered ONE (08:05)
[2025-05-10] MEDS ORDERED: ACETAMINOPHEN 1000MG/100ML IV BAG As Ordered ONE (08:06)
[2025-05-10] MEDS ORDERED: PHENYLephrine 500MCG 5ML (100MCG/ML) SYRINGE As Ordered ONE (08:56)
[2025-05-10] MEDS: PRENATAL VITAMINS CHEWABLE TABLET PO SCH (09:00)
[2025-05-10 09:21] LABS: CORD GAS ABE A -3.8; CORD GAS ABE V -2.6; CORD GAS HCO3 A 23.5 MMOL/L; CORD GAS HCO3 V 23.4 MMOL/L; CORD GAS O2 SAT A 33.9 %; CORD GAS O2 SAT V 67.9 %; CORD GAS PCO2 A 52.4 mmHg; CORD GAS PCO2 V 44.7 mmHg; CORD GAS PH A 7.27 UNITS; CORD GAS PH V 7.336 UNITS; CORD GAS PO2 A 15.7 mmHg; CORD GAS PO2 V 27.0 mmHg; CORD GAS SBC A 20.0 MMOL/L; CORD GAS SBC V 21.7 MMOL/L; CORD GAS TCO2 A 25.1 MMOL/L; CORD GAS TCO2 V 24.7 MMOL/L
[2025-05-10] MEDS ORDERED: METHYLERGONOVINE MALEATE 0.2 MG/ML 1 ML VIAL IM PRN (09:45)
[2025-05-10] MEDS ORDERED: ONDANSETRON 4MG 2ML VIAL IV PRN ×2 (09:45→09:55)
[2025-05-10] MEDS ORDERED: ACETAMINOPHEN 500 MG TAB PO PRN (09:45)
[2025-05-10] MEDS ORDERED: CALCIUM CARBONATE 500 MG CHEW U/D PO PRN (09:45)
[2025-05-10] MEDS ORDERED: ANUSOL HC CREAM 30 GM TOP PRN (09:45)
[2025-05-10] MEDS ORDERED: RHOGAM 300MCG (1500IU) INJ IM SCH (09:45)
[2025-05-10] MEDS ORDERED: MORPHINE 4 MG/ML 1 ML VIAL IV PRN (09:45)
[2025-05-10] MEDS ORDERED: NALOXONE INJ 0.4 MG/1 ML VIAL IV PRN ×4 (09:50→09:55)
[2025-05-10] MEDS ORDERED: **NOTE PATIENT COMMENT** MISC XX SCH ×2 (09:50→09:55)
[2025-05-10] MEDS: SLF 3 ML SYR IV SCH (09:50)
[2025-05-10] MEDS ORDERED: IBUP80TA PO (09:55)
[2025-05-10] MEDS ORDERED: SLF 3 ML SYR IV SCH (09:55)
[2025-05-10] MEDS ORDERED: diphenhydrAMINE 50 MG/ML VIAL IV PRN (09:55)
[2025-05-10] MEDS ORDERED: COLA100C5 PO (09:55)
[2025-05-10] MEDS ORDERED: PERCOCET PO (09:55)
[2025-05-10] MEDS: OXYTOCIN DRIP 30 UNITS in IV 1 EA IV SCH (10:07)
[2025-05-10] MEDS: PERCOCET 5MG/325MG TAB PO PRN (12:02)
[2025-05-10] MEDS: diphenhydrAMINE 50 MG/ML VIAL IV PRN (12:03)
[2025-05-10] MEDS: KETOROLAC 30 MG/ML 1 ML VIAL IV SCH (16:15)
[2025-05-10] MEDS: DOCUSATE SODIUM 100 MG CAPSULE PO SCH (20:13)
[2025-05-11] MEDS: PERCOCET 5MG/325MG TAB PO PRN (01:39)
[2025-05-11 02:00] VITALS: BP 141/89; O2SAT 100
[2025-05-11 05:49] VITALS: BP 136/84; O2SAT 100
[2025-05-11 06:29] LABS: PLATELET COUNT, AUTOMATED 225 10^3/uL (150-450)
[2025-05-11] MEDS: SIMETHICONE 80MG CHEW TAB PO PRN (08:52)
[2025-05-11 10:19] VITALS: BP 134/78; O2SAT 98
[2025-05-11] MEDS: IBUPROFEN 800 MG TAB PO SCH (12:21)
[2025-05-11 14:15] VITALS: BP 131/75; O2SAT 99
[2025-05-11] MEDS ORDERED: HOME MED LIST COMPLETE! XX SCH (14:50)
[2025-05-11 17:45] VITALS: BP 135/84; O2SAT 99
[2025-05-11 22:00] VITALS: BP 137/76; O2SAT 99
[2025-05-12 06:00] VITALS: BP 129/90; O2SAT 98
[2025-05-12] MEDS ORDERED: MEASLES,MUMPS,RUBELLA VACCINE INJ (MMR-II) SC.IMMUN ONE (09:00)
== END 2025-05-12 12:50 | disposition home or self-care (01) | DRG 540 ==
LOC: M LDI 05:36 → M OBS 11:41
PROVIDERS: ADMIT Obstetrics & Gynecology; ATTEND Obstetrics & Gynecology
PROC: 0UB10ZZ Excision of Left Ovary, Open Approach (ICD-10-PCS; 2025-05-10)
PROC: 10D00Z1 Extraction of Products of Conception, Low, Open Approach (ICD-10-PCS; principal; 2025-05-10 07:30)
DX: O32.1XX0 Maternal care for breech presentation, not applicable or unspecified (principal); O24.12 Pre-existing type 2 diabetes mellitus, in childbirth; Z3A.38 38 weeks gestation of pregnancy; N83.202 Unspecified ovarian cyst, left side; O34.83 Maternal care for other abnormalities of pelvic organs, third trimester; Z37.0 Single live birth